=== PATIENT | female | born 1940 | race Caucasian/White ===

== ENCOUNTER 2019-04-04 03:09 | Emergency (ER) | payer MEDICARE, SELFPAY ==
--- NOTE | ~2019-04-04 | CT_ITS ---
EXAMINATION: CT abdomen pelvis w con DATE: 04/04/2019 05:55 INDICATION: Abdominal pain. Anemia, black stools. TECHNIQUE: Computed tomography (CT) of the abdomen and pelvis was performed with 100 cc Omnipaque 350 intravenous contrast. Automated exposure control and iterative reconstruction technique were employe d. Exam dose: 496.88 mGy-cm total exam DLP. COMPARISON: None. FINDINGS: Surgical clips are noted in the right breast. Heavily peripherally calcified left breast im plant. Old healed left rib fractures. Very prominent posterior pleural calcifications are noted on the right and along the anteromedial lef t chest wall.. Focal left upper lobe bronchiectasis and soft tissue bronchial thickening. There is discoid atelectasis or scarring and some focal tree-in-bud infiltrate in the left lower lobe . There is old pulmonary granulomatous disease. Normal heart size. No pericardial or pleural effusion. Occasional probable small hepatic cysts, too small to definitively characterize. Status post cholecystectomy. Calcified splenic granulomas. 5.8 mm pancreatic tail cyst. The adrenal glands appear normal. Approximately 8 and 7 mm left renal cyst. No urinary tract calculus or hydroureteronephrosis. The uri nary bladder, uterus and adnexal areas appear unremarkable. There is atherosclerotic calcification but no aneurysm of the abdominal aorta. No intraperitoneal or retroperitoneal or pelvic mass lesion or adenopathy or ascites is evident. Diverticulosis of the colon; no CT evidence of diverticulitis. No bowel obstruction or intraperitonea l free air is evident. There is a moderately prominent amount of fecal material within the colon. Radiopaque sutures along the anterior mid abdominal wall. Prominent dextroscoliosis of the lumbar spine and prominent degenerative disc disease. Prominent dege nerative change at the apophyseal joints. No suspicious osteolytic or osteoblastic lesions are noted. IMPRESSION: Bilateral prominent pleural calcifications Bronchiectasis and bronchial soft tissue thickening, left upper lobe Probable small hepatic cysts, 2 subcentimeter left renal cysts Diverticulosis of the colon Reviewed, dictated and finalized at [facility]. Reviewed, dictated and finalized at [facility]. [employer]
[2019-04-04 03:15] VITALS: BP 141/66; PULSE 113; RESP 16; TEMP 36.1; O2SAT 100
--- NOTE | 2019-04-04 05:05 | ED.ABDPAIN ---
HPI - Abdominal Pain General Chief Complaint: Abdominal Pain Stated Complaint: anemic, impacted, black stool Time Seen by Provider: 04/04/19 03:27 Source: RN notes reviewed History of Present Illness HPI narrative: Patient presents to the emergency department from home for black stools. Patient states symptoms been ongoing for the past 2 days. Patient states she is noted black stools as well as constipation. States she is had intermittent left abdominal pain. Denies any fevers or chills nausea or vomiting or any other symptoms. States she does have a history of anemia but denies any current iron use. Patient states that she has had a colonoscopy before performed at [facility] and is where her regular physicians are located. Denies any other symptoms at this time Related Data Home Medications Medication Instructions Recorded Confirmed amlodipine 04/04/19 aspirin [Adult Low Dose Aspirin] 04/04/19 metoprolol tartrate 04/04/19 rosuvastatin [Crestor] mg 04/04/19 Allergies Allergy/AdvReac Type Severity Reaction Status Date / Time No Known Allergies Allergy Unverified 01/24/18 15:33 Review of Systems Review of Systems: Narrative: Gen.: Denies fevers or chills ENT: Denies congestion Respiratory: Denies shortness of breath or cough CV: Denies chest pain or palpitations GI: See HPI denies burning, urgency, frequency or hematuria Musculoskeletal: Denies back pain or muscle pain Neuro: Denies numbness, tingling, weakness or focal weakness Skin: Denies rash Except as documented, all other systems reviewed and negative [facility] Past Medical History Medical History (Updated 04/04/19 @ 06:25 by J Luis Dave DO) Hyperlipidemia Hypertension Social History Social History (Updated 04/04/19 @ 05:07 by J Luis Dave DO) Smoking status: Never smoker Exam Narrative: Exam Narrative: APPEARANCE: No acute distress, nontoxic, resting in bed HEENT: Normocephalic, atraumatic, OMM RESPIRATORY: No respiratory distress, clear to auscultation bilaterally with no rhonchi wheezing or rales CARDIOVASCULAR: RRR s murmur ABDOMINAL: Soft, nondistended, tender palpation left lower quadrant, no tenderness left upper quadrant, right upper quadrant right lower quadrant, no rebound or guarding Rectal: Small amount of dark brown stool that is Hemoccult negative, MUSCULOSKELETAl: Moves all extremities. No clubbing, cyanosis or edema. NEURO: Awake and alert. Following commands, speech normal, no focal deficits SKIN:: Warm, dry. Normal Color PSYCHIATRIC: Normal affect/mood Course Course Emergency Course: Discussed with patient results of workup and diagnosis. Discussed need for follow-up with primary care, proper use of medication, and reasons to return to the emergency department. Patient understands and agrees to current treatment plan Vital Signs Vital signs: Vital Signs Temperature 97.0 F L 04/04/19 03:15 Pulse Rate 113 H 04/04/19 03:15 Respiratory Rate 16 04/04/19 03:15 Blood Pressure 141/66 H 04/04/19 03:15 Pulse Oximetry 100 04/04/19 03:15 Temperature 97.0 F L 04/04/19 03:15 Pulse Rate 113 H 04/04/19 03:15 Respiratory Rate 16 04/04/19 03:15 Blood Pressure 141/66 H 04/04/19 03:15 Pulse Oximetry 100 04/04/19 03:15 MDM - Abdominal Pain Lab Data Result diagrams: 04/04/19 05:09 04/04/19 05:34 Labs: Lab Results 04/04/19 04/04/19 04/04/19 Range/Units 04:06 05:09 05:09 WBC 7.3 (4.5-10.0) K/mm3 RBC 3.52 L (4.2-5.4) M/mm3 Hgb 9.2 L (12.0-15.0) g/dL Hct 30.0 L (37.0-47.0) % MCV 85.2 (80-100) fl MCH 26.1 (26-34) pg MCHC 30.7 L (32-36) g/dl RDW 14.6 H (11.5-14.5) % Plt Count 368 (150-375) k/mm3 MPV 8.7 (7.4-10.4) fl Immature Gran % (Auto) 0.5 (0-0.5) % Neut % (Auto) 80.6 H (45.5-73.1) % Lymph % (Auto) 8.2 L (18.3-44.2) % [place] % (Auto) 10.0 H (2.6-8.5) % Eos % (Auto) 0.4 (0-4.
[2019-04-04 05:26] LABS: Basophils Percent Auto 0.3 % (0.2-1.2); Eosinophils Percent Auto 0.4 % (0-4.4); Hemoglobin 9.2 g/dL (12.0-15.0); Immature Granulocyte Absolute 0.04 K/mm3 (0.00-0.031); Immature Granulocyte Percent A 0.5 % (0-0.5); Lymphocytes Percent Auto 8.2 % (18.3-44.2); Mean Corpuscular HGB Conc 30.7 g/dl (32-36); Mean Corpuscular Hemoglobin 26.1 pg (26-34); Mean Corpuscular Volume 85.2 fl (80-100); Mean Platelet Volume 8.7 fl (7.4-10.4); Monocytes Absolute Auto 0.7 K/mm3 (0.1-0.6); Neutrophils Absolute Auto 5.9 K/mm3 (1.3-6.7); Neutrophils Percent Auto 80.6 % (45.5-73.1); Platelet Count Result 368 k/mm3 (150-375); Red Blood Count 3.52 M/mm3 (4.2-5.4); Red Cell Distribution Width 14.6 % (11.5-14.5); White Blood Count 7.3 K/mm3 (4.5-10.0)
[2019-04-04 05:39] LABS: Alanine Aminotransferase 15 U/L (4-35); Albumin Level 3.8 g/dL (3.5-5.1); Alkaline Phosphatase 89 U/L (38-126); Aspartate Amino Transferase 23 U/L (14-36); Bilirubin,Total 0.3 mg/dL (0.2-1.3); Blood Urea Nitrogen 34 mg/dL (7-17); Calcium 9.3 mg/dL (8.4-10.2); Carbon Dioxide 29 mmol/L (22-30); Chloride 98 mmol/L (98-107); Estimated Glomerular Filt Rate 40; Glucose 104 mg/dL (65-105); Potassium 3.8 mmol/L (3.4-5.0); Prothrombin Time 13.3 Seconds (11.1-14.7); Sodium 137 mmol/L (137-145)
[2019-04-04 05:40] LABS: Partial Thromboplastin Time 34.8 SECONDS (22.3-36.8)
[2019-04-04 05:41] LABS: Blood Urea Nitrogen 44 mg/dL (8-26); Estimated Glomerular Filt Rate 37
[2019-04-04] MEDS: SODIUM CHLORIDE 0.9% IV 500 ML 999 ML IV CONT (07:03)
[2019-04-04 08:19] VITALS: BP 128/86; PULSE 93; RESP 15; O2SAT 96
--- NOTE | 2019-04-11 19:19 | PC.NURSE ---
LATE ENTRY This note is being entered to document information to the patient's record. The following information was omitted on [04/04/2019], NS stop time 0700.
== END 2019-04-04 08:21 | disposition home or self-care (01) ==
PROVIDERS: Emergency Provider Emergency Medicine; PCP Internal Medicine
DX: K59.00 Constipation, unspecified (principal); E78.5 Hyperlipidemia, unspecified; I10 Essential (primary) hypertension; R10.32 Left lower quadrant pain
CPT/HCPCS: 36415; 74177; 80053; 85025; 85610; 85730; 86850; 86900; 86901; 99283; J7040; Q9967

== ENCOUNTER 2020-10-28 12:59 | Emergency (ER) | payer MEDICARE, SELFPAY ==
[2020-10-28 13:09] VITALS: BP 169/79; PULSE 105; RESP 18; TEMP 36.8; O2SAT 97
--- NOTE | 2020-10-28 13:32 | ED.GENADULT ---
HPI - General Adult General Chief complaint: Extremity Problem,Nontraumatic Stated complaint: blood pressure Time Seen by Provider: 10/28/20 13:38 Source: patient and RN notes reviewed Mode of arrival: ambulatory Limitations: no limitations History of Present Illness HPI narrative: 80-year-old female presents with concern for blood pressure check. She also reports lower leg edema. Reports the edema has been a chronic problem. Reports she used to be on a water pill and is unable to take a water pill because it makes her dehydrated. Reports she was recently at the oral surgeon and was told she had blood pressure that was low, reports a blood pressure was 107/59. Reports she wanted to have her blood pressure checked again to make sure it was not low. She denies any current symptoms such as diaphoresis, lightheadedness, headache, syncope, near syncope. She reports lower leg edema, however denies any erythema, warmth, tenderness to the calves. Reports due to left upper extremity paralysis and right upper extremity weakness she is unable to use compression stockings. MD complaint: Edema Related Data Allergies Allergy/AdvReac Type Severity Reaction Status Date / Time No Known Allergies Allergy Verified 10/28/20 13:26 Review of Systems Review of Systems: CONSTITUTIONAL: Denies malaise, chills, sweats, or fever. CARDIOVASCULAR: Denies chest pain, palpitations. Reports bilateral lower leg edema. RESPIRATORY: Denies cough or dyspnea. SKIN: Denies calf redness, warmth, tenderness MUSCULOSKELETAL: Denies muscle skeletal pain or myalgia. NEUROLOGIC: Denies numbness, weakness, or headache. All systems reviewed & are unremarkable except as noted in HPI and below PMFSH Comments At time of signature, agree with nursing past medical, surgical, social and family history. There is no relevant family history pertinent to the presenting complaint Exam Narrative: GENERAL: Well-appearing, well-nourished, and in no acute distress. HEAD: Normocephalic EYES: PERRLA, conjunctivae clear ENT: Nares clear. Mucous membranes moist. NECK: Supple. CHEST: No respiratory distress. Clear to auscultation. No bony deformities, no asymmetry. Speaks in full sentences. HEART: Regular rate and rhythm. No murmur heard. Normal peripheral pulses. EXTREMITIES: Bilateral lower extremity edema, greater on the right, 2+ pitting. No erythema, warmth, tenderness noted SKIN: Warm, dry, no rash. No open skin, lacerations, abrasions noted NEURO: Alert and oriented x3. PSYCH: Normal mood and affect Course Course Emergency Course: Education given to patient regarding lower leg edema and treatment, blood pressure monitoring, diet. Patient is aware of diagnosis, understands and agrees to treatment plan. Anticipatory guidance given. Patient agrees to follow-up as directed and is aware of reasons to seek care at the emergency department. Portions of this record may have been created with voice recognition software Vital Signs Vital signs: Vital Signs Temperature 98.2 F 10/28/20 13:09 Pulse Rate 105 H 10/28/20 13:09 Respiratory Rate 18 10/28/20 13:09 Blood Pressure 169/79 H 10/28/20 13:09 Pulse Oximetry 97 10/28/20 13:09 Temperature 98.2 F 10/28/20 13:09 Pulse Rate 105 H 10/28/20 13:09 Respiratory Rate 18 10/28/20 13:09 Blood Pressure 169/79 H 10/28/20 13:09 Pulse Oximetry 97 10/28/20 13:09 Reviewed. Patient has been instructed to follow up with her primary care provider within the next week regarding her elevated blood pressure today. Medical Decision Making MDM Narrative Medical decision making narrative: Exam findings show no acute concerns or changes; patient is non-toxic appearing and is in no distress. Patient is appropriate for outpatient treatment and follow-up. Vital Signs Vital Signs: Vital Signs Temperature 98.2 F 10/28/20 13:09 Pulse Rate 105 H 10/28/20 13:09 Respiratory Rate 18 10/28/20 13:09 Blood Pressure 169
== END 2020-10-28 13:55 | disposition home or self-care (01) ==
PROVIDERS: Emergency Provider Nurse Practitioner; PCP Internal Medicine
DX: R60.0 Localized edema (principal)
CPT/HCPCS: 99212; G0463

== ENCOUNTER 2020-12-19 10:16 | Inpatient (IN) | payer MEDICARE, SELFPAY ==
[2020-12-19] VITALS (8 sets, daily range): BP systolic 91–131; BP diastolic 57–94; PULSE 76–112; RESP 17–25; TEMP 36.2–36.4; O2SAT 93–99; BMI 20.9
--- NOTE | ~2020-12-19 | CT_ITS ---
EXAMINATION: CT cervical spine wo con DATE: 12/19/2020 12:40 INDICATION: Fall. History of neck fracture in the past TECHNIQUE: Computed tomography (CT) of the cervical spine was performed without intravenous contrast. Automated exposure control and iterative reconstruction technique were employed. Exam dose: 605.33 mGy-cm total exam DLP. COMPARISON: None FINDINGS: There is normal alignment at C1 and C2, the odontoid process is intact. There is normal al ignment at the remainder of the cervical spine. No fracture or dislocation or prevertebral soft tiss ue swelling. There is multi-level degenerative disc disease of the cervical spine. IMPRESSION: Multi-level degenerative disc disease of the cervical spine; no fracture or dislocation Reviewed, dictated and finalized at [facility]. Reviewed, dictated and finalized at [facility]. IMPRESSION: Multi-level degenerative disc disease of the cervical spine; no fr acture or dislocation
--- NOTE | ~2020-12-19 | US_ITS ---
EXAMINATION: US venous doppler UE DATE: 12/20/2020 17:05 INDICATION: Left upper limb edema. TECHNIQUE: Grayscale ultrasound images without and with compression and Doppler ultrasound images of the left upper extremity veins were obtained. COMPARISON: None. FINDINGS: The visualized portions of the left internal jugular vein, subclavian vein, axillary vein, brachial v eins, basilic vein, and cephalic vein are patent. The radial vein and ulnar vein are not well visuali zed. IMPRESSION: 1. No deep venous thrombosis. Reviewed, dictated and finalized at [facility].
--- NOTE | ~2020-12-19 | CT_ITS ---
EXAMINATION: CT brain wo con DATE: 12/19/2020 12:40 INDICATION: Fall. Head trauma. TECHNIQUE: Computed tomography (CT) of the head was performed without intravenous contrast. The mA wa s adjusted according to patient size. Iterative reconstruction technique was employed. Exam dose: 60 5.33 mGy-cm total exam DLP. COMPARISON: None FINDINGS: There is streak artifact from tooth fillings and from motion. No intracranial mass lesion or hemorrhage, midline shift or mass effect is evident. No recent cerebro vascular accident is evident. CT is not sensitive for detection of hyperacute nonhemorrhagic infarct. Old high left parietal cerebrovascular infarct, old left occipital infarct and chronic left periventr icular lacunar infarct. There is nonspecific diminished attenuation of the cerebral white matter, likely due to chronic small vessel ischemic changes. Bilateral carotid siphon internal carotid artery calcifications. There is m oderate cerebral and cerebellar volume loss. No subdural or epidural hematoma is detected. The mastoid air cells and paranasal sinuses are well-developed and aerated. No fracture or bone destruction of the cranial vault. IMPRESSION: No skull fracture or acute intracranial finding Cerebral atherosclerosis and chronic small vessel ischemic changes of the cerebral white matter Old left parietal, occipital and periventricular infarcts Reviewed, dictated and finalized at [facility]. Reviewed, dictated and finalized at [facility]. IMPRESSION: No skull fracture or acute intracranial finding Cerebral atherosclerosis and chronic small vessel ischemic changes of the cereb ral white matter Old left parietal, occipital and periventricular infarcts
--- NOTE | ~2020-12-19 | XR_ITS ---
EXAMINATION: XR chest 1V EXAM DATE: 12/19/2020 12:43 INDICATION: Shortness of breath. TECHNIQUE: Portable AP frontal chest x-ray was obtained. There is no prior study for comparison. FINDINGS: There is patchy bibasilar airspace disease, multi segmental in the left lower lobe. Pneumon ia or edema, clinical correlation. There is cardiomegaly. Left breast implant with capsular calcifica tion, retraction. Right breast surgical clip markers. Right humeral neck hardware. Scattered calcifie d granulomata in the lungs. The bones are osteopenic. There are bony degenerative changes. There are left 9th, 7th and 6th rib fractures, probably old but clinical correlation. No pneumothorax. IMPRESSION: 1. Moderate amount of left greater than right basilar pneumonia or edema. 2. Cardiomegaly. 3. Other chronic findings. Reviewed, dictated and finalized at [facility].
--- NOTE | ~2020-12-19 | US_ITS ---
EXAMINATION: US venous doppler [facility] DATE: 12/20/2020 11:53 INDICATION: Bilateral lower limb swelling TECHNIQUE: Grayscale ultrasound images without and with compression and Doppler ultrasound images of the bilateral lower extremity veins were obtained. COMPARISON: None. FINDINGS: The visualized portions of right common femoral vein, profunda (deep) femoral vein, femoral vein, pop liteal vein, posterior tibial veins, peroneal veins, gastrocnemius vein and greater saphenous vein ou tflow are patent. 4.1 x 2.2 x 1.0 cm anechoic Wood's cyst at the right popliteal fossa. Prominent camilo bcutaneous edema at the right calf. The visualized portions of left common femoral vein, profunda femoral vein, femoral vein, popliteal v ein, posterior tibial veins, peroneal veins, gastrocnemius vein and greater saphenous vein outflow ar e patent. Mild subcutaneous edema at the left calf. IMPRESSION: 1. No deep venous thrombosis in either lower limb. 2. Small right Wood's cyst. Reviewed, dictated and finalized at location A.
--- NOTE | 2020-12-19 10:23 | ECG_ITS ---
Measurements Intervals [place] Rate: 120 P: 86 NM: 145 QRS: -39 QRSD: 97 T: 144 QT: 322 QTc: 456 Interpretive Statements SINUS TACHYCARDIA LEFT AXIS DEVIATION CANNOT RULE OUT SEPTAL INFARCT, AGE INDETERMINATE ST-T WAVE ABNORMALITY IN LAT/HIGH LAT LEADS- CONSIDER ISCHEMIA BASELINE WANDER- V6 ABNORMAL ECG Electronically Signed On 12-19-2020 14:35:48 CDT by Rigo Del Toro D.O.
[2020-12-19 10:49] LABS: Basophils Percent Auto 0.2 % (0.2-1.2); Hematocrit 41.6 % (37.0-47.0); Hemoglobin 12.8 g/dL (12.0-15.0); Immature Granulocyte Absolute 0.03 K/mm3 (0.00-0.031); Immature Granulocyte Percent A 0.4 % (0-0.5); Lymphocytes Absolute Auto 0.61 K/mm3 (0.9-3.2); Lymphocytes Percent Auto 7.2 % (18.3-44.2); Mean Corpuscular HGB Conc 30.8 g/dl (32-36); Mean Corpuscular Hemoglobin 29.9 pg (26-34); Mean Corpuscular Volume 97.2 fl (80-100); Mean Platelet Volume 9.4 fl (7.4-10.4); Monocytes Absolute Auto 0.6 K/mm3 (0.1-0.6); Monocytes Percent Auto 7.6 % (2.6-8.5); Neutrophils Absolute Auto 7.2 K/mm3 (1.3-6.7); Neutrophils Percent Auto 84.6 % (45.5-73.1); Platelet Count Result 210 k/mm3 (150-375); Red Blood Count 4.28 M/mm3 (4.2-5.4); Red Cell Distribution Width 16.2 % (11.5-14.5); White Blood Count 8.5 K/mm3 (4.5-10.0)
[2020-12-19 11:03] LABS: Alanine Aminotransferase 167 U/L (4-35); Alkaline Phosphatase 103 U/L (38-126); Anion Gap 10 mmol/L (8-16); Aspartate Amino Transferase 154 U/L (14-36); Blood Urea Nitrogen 60 mg/dL (7-17); Calcium 9.2 mg/dL (8.4-10.2); Carbon Dioxide 32 mmol/L (22-30); Chloride 102 mmol/L (98-107); Estimated CRCL calculation 24 ml/min; Estimated Glomerular Filt Rate 40; Glucose 100 mg/dL (65-110); Potassium 4.7 mmol/L (3.4-5.0); Sodium 144 mmol/L (137-145)
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
[2020-12-19 12:50] LABS: Creatine Kinase 967 U/L (30-135)
[2020-12-19 13:06] LABS: Troponin I 0.261 ng/mL (0.000-0.034)
[2020-12-19 13:34] LABS: Add Urine Microscopic? YES; Appearance Urine Cloudy (Clear); Bilirubin Urine Negative (Negative); Blood Urine Negative (Negative); Color Urine Yellow (Yellow); Glucose Urine UA Negative (Negative); Ketones Urine Negative (Negative); Leukocyte Esterase Ur Negative LEU/UL (Negative); Mucus Urine Rare /lpf; Nitrate Urine Negative (Negative); Protein Urine 3+ mg/dL (Negative); Squamous Epithelial Cell Urine Few /hpf (Few); Urobilinogen Urine Negative mg/dL (<2.0)
--- NOTE | 2020-12-19 13:42 | ECG_ITS ---
Measurements Intervals [place] Rate: 104 P: 66 RI: 157 QRS: -32 QRSD: 93 T: 138 QT: 347 QTc: 458 Interpretive Statements SINUS TACHYCARDIA ATRIAL PREMATURE COMPLEX LEFT AXIS DEVIATION CONSIDER ANTERIOR INFARCT, AGE INDETERMINATE BORDERLINE ST-T WAVE ABNORMALITY- INF/HIGH LAT LEADS BASELINE WANDER- V2 ABNORMAL ECG Electronically Signed On 12-19-2020 14:45:04 CDT by Rigo Del Toro D.O.
[2020-12-19] MEDS: SODIUM CHLORIDE 0.9% IV 500 ML 999 ML IV CONT (14:10)
--- NOTE | 2020-12-19 15:42 | PC.NURSE ---
Called an ordered a tray for pt.
[2020-12-19 17:57] LABS: EDCOVIDSCREEN Negative (Negative)
--- NOTE | 2020-12-19 20:20 | ADMGEN ---
This patient, Beatrice Bartholomew, was admitted to IMU Room 206-01 @ 1955 from ED. Patient/family oriented to hospital policies and general routines including ID bracelet, bed and alarms, visiting hours, pain management, procedures, bathroom and other care routines, personal items, smoking policy, room service/diet, and visiting hours. Information on how to activate the Rapid Response Team has been discussed. Patient/Family are encouraged to report perceived risks to care and to ask questions if they do not understand what they are told or what they should do.
--- NOTE | 2020-12-19 20:45 | PM.IMHP ---
H&P: HPI History of Present Illness Date/Time: 12/19/20 20:45 this is a 80 year old female patient who lives at home alone. 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 The patient has also had a mastectomy and has a consider amount of lymphadenopathy to the left arm. The patient is able to ambulate on her own and take care of herself however the patient fell down in the garage without her alert bracelet on. The patient laid on her garage floor yesterday from 6:00 a.m. to 7:00 p.m.. Her son activated the EMS however the patient refused to be transported to the hospital. The patient was taken to her chiropractor today in the chiropractor encouraged her to come to the emergency room for further assessment. Chest x-ray was read as moderate amount of left greater than right basilar pneumonia had edema. Cardiomegaly. Other chronic findings. Cervical spine was read as multiple level degeneration disc disease of the cervical spine no fracture or dislocation. Head CT was read as no skull fracture or acute intracranial findings. Cerebral atherosclerosis and chronic small vessel ischemic changes of the cerebral white matter. Old left parietal, occipital and periventricular infarct. Creatinine 1.3 with a BUN is 60 which is her baseline. AST 154 ALT is 167. Total creatinine kinase 967. Troponin 0.261. Rapid COVID-19 was negative. The patient is being admitted to inpatient services on the date of service 12/19/2020 Chief Complaint: weakness and fall Review of Systems Review of Systems: All systems reviewed & are unremarkable except as noted in HPI and below Constitutional: Constitutional: Reports as per HPI and Reports no additional constitutional complaints Eyes: Eyes: Reports as per HPI and Reports no additional eye complaints ENT: Reports system reviewed and no additional complaints, except as documented and Reports Normal hearing present Cardiovascular: Cardiovascular: Reports no additional cardiovascular complaints Respiratory: Respiratory: Reports no additional respiratory complaints and Reports no additional respiratory complaints Gastrointestinal: Gastrointestinal: Reports as per HPI and Reports no additional gastrointestinal complaints Musculoskeletal: Musculoskeletal: Reports no additional musculoskeletal complaints Integumentary/Breasts: Skin/Breast: Reports system reviewed and no additional complaints, except as docu and Reports as per HPI Neurologic: Reports system reviewed and no additional complaints, except as documented, Reports as per HPI and Reports Normal hearing present Psychiatric: Psychiatric: Reports no additional psychiatric complaints and Reports as per HPI Endocrine: Endocrine: Reports no additional endocrine complaints Hematologic/Lymphatic: Hematologic/Lymphatic: Reports no additional hematologic/lymphatic complaints Allergic/Immunologic: Allergic/Immunologic: Reports no additional allergic/immunologic complaints [facility] Past Medical History Medical History (Updated 12/19/20 @ 21:13 by Elissa Moss NP) Bilateral cataracts History of breast cancer Left mastectomy with breast implant with chemotherapy and radiation. Right lumpectomy with chemotherapy. History of CVA (cerebrovascular accident) As per head CTOld left parietal, occipital and periventricular infarcts History of poliomyelitis Hyperlipidemia Hypertension Surgical History Surgical History (Updated 12/19/20 @ 21:05 by Elissa Moss NP) H/O breast implant To the left secondary to mastectomy from breast cancer H/O cervical spine surgery History of left mastectomy History of lumpectomy of right breast History of surgical procedure on eye proper using laser History of tracheostomy Family History Family History (Updated 12/19/20 @ 21:06 by Elissa Moss NP) Father Testicular cancer Mother Breast cancer Social History Social History (Updated 12/19/20 @ 21:08 by Elissa Bansal
[2020-12-19 21:26] LABS: Creatine Kinase 626 U/L (30-135)
[2020-12-19 21:47] LABS: Troponin I 0.183 ng/mL (0.000-0.034)
[2020-12-20] VITALS (17 sets, daily range): BP systolic 106–128; BP diastolic 55–67; PULSE 97–117; RESP 14–20; TEMP 36.4–37.2; O2SAT 93–97; BMI 20.9
--- NOTE | 2020-12-20 | ECHO_ITS ---
Patient Info Name: Beatrice Bartholomew Age: 80 years : 1940 Gender: Female Ht: 64 in Wt: 122 lbs BSA: 1.58 m2 HR: 106 bpm BP: 106 / 60 mmHg Exam Date: 12/20/2020 9:46 AM Exam Location: [facility] Patient Status: Outpatient Admit Date: 12/19/2020 Staff Ordering Physician: Elissa Moss NP Dining Room Attendant Cafeteria: Venkat Tinajero RDCS, RT Attending Provider: Maddison Ledbetter PA-C Referring Physician: Ajay CAMPOS; Exam Type: CA echo dop color flow w con Study Info Indications I51.7 - Cardiomegaly Complete two-dimensional, color flow and Doppler transthoracic echocardiogram is performed with contrast to opacify the left ventricle and to improve the deliniation of the left ventricle endocardial borders. Summary 1. Technically difficult study, poor image quality despite using echo contrast. Borderline LV enlargement, borderline LVH. Severe global LV systolic dysfunction, ejection fraction visually estimated at about 15-20%. Diastolic dysfunction is present. Mild left atrial enlargement. Mitral valve is not well visualized, mild MR. Aortic valve not well visualized. Mild TR, moderate pulmonary hypertension, RVSP 53 mmHg. Dilated IVC without respiratory collapse. Sinus tachycardia. Left Ventricle Left ventricular systolic function is severely reduced, estimated at 15-20%. The left ventricular diastolic function is abnormal. Left Atria Left atrial chamber dimension is normal. Right Atria Right atrial chamber dimension is normal. Aortic Valve The aortic valve is not well visualized. Pulmonic Valve The pulmonic valve is not well visualized. Mitral Valve The mitral valve has not well visualized. There is mild mitral valve regurgitation. Tricuspid Valve The tricuspid valve leaflets are normal. There is mild tricuspid valve regurgitation. Moderate pulmonary hypertension, estimated pulmonary arterial systolic pressure is 53 mmHg. Pericardium/Pleural There is trivial pericardial effusion. Inferior Vena Cava Dilated inferior vena cava with no collapse upon inspiration consistent with elevated right atrial pressure, 15 mmHg. Aorta The aortic root size at the sinus of Valsalva is not well visualized. Mitral Valve Name Value Normal MV Doppler MV Decel [place] 433.10 cm/s2 MV PHT 0 s MV Area (PHT) 4.09 cm2 4.00-5.00 MV Diastolic Function MV E Peak Velocity 80.32 cm/s MV Decel Time 0 s MV Annular TDI MV E/e' (Septal) 12.18 <=8.00 MV E/e' (Lateral) 9.35 <=8.00 MV E/e' (Average) 10.76 Tricuspid Valve Name Value Normal TV Regurgitation Doppler TR Peak Velocity 308.99 cm/s
[2020-12-20] MEDS: SODIUM CHLORIDE 0.9% IV 1,000 ML 100 ML IV CONT ×2 (00:08→08:57)
[2020-12-20] MEDS: ROSUVASTATIN 10 MG TABLET PO (00:12)
[2020-12-20 05:49] LABS: Basophils Percent Auto 0.3 % (0.2-1.2); Eosinophils Percent Auto 0.4 % (0-4.4); Hematocrit 36.1 % (37.0-47.0); Immature Granulocyte Absolute 0.02 K/mm3 (0.00-0.031); Immature Granulocyte Percent A 0.3 % (0-0.5); Lymphocytes Absolute Auto 1.04 K/mm3 (0.9-3.2); Lymphocytes Percent Auto 13.7 % (18.3-44.2); Mean Corpuscular HGB Conc 30.5 g/dl (32-36); Mean Corpuscular Hemoglobin 29.3 pg (26-34); Mean Corpuscular Volume 96.3 fl (80-100); Mean Platelet Volume 9.4 fl (7.4-10.4); Monocytes Absolute Auto 0.9 K/mm3 (0.1-0.6); Monocytes Percent Auto 11.3 % (2.6-8.5); Neutrophils Absolute Auto 5.6 K/mm3 (1.3-6.7); Platelet Count Result 177 k/mm3 (150-375); Red Blood Count 3.75 M/mm3 (4.2-5.4); Red Cell Distribution Width 16.1 % (11.5-14.5); White Blood Count 7.6 K/mm3 (4.5-10.0)
[2020-12-20 06:00] LABS: Alanine Aminotransferase 126 U/L (4-35); Albumin Level 3.1 g/dL (3.5-5.1); Alkaline Phosphatase 82 U/L (38-126); Anion Gap 4 mmol/L (8-16); Aspartate Amino Transferase 91 U/L (14-36); Bilirubin,Total 0.6 mg/dL (0.2-1.3); Blood Urea Nitrogen 62 mg/dL (7-17); CRP 3.2 mg/dL (<1.0); Calcium 8.4 mg/dL (8.4-10.2); Carbon Dioxide 29 mmol/L (22-30); Chloride 104 mmol/L (98-107); Creatine Kinase 458 U/L (30-135); Estimated CRCL calculation 30 ml/min; Estimated Glomerular Filt Rate 43; Glucose 99 mg/dL (65-110); Lipase 134 U/L (23-300); Magnesium 2.2 mg/dL (1.6-2.3); Potassium 4.7 mmol/L (3.4-5.0); Sodium 137 mmol/L (137-145)
[2020-12-20] MEDS: POTASSIUM CHLORIDE 10 MEQ TABLET.ER PO (08:45)
[2020-12-20] MEDS: FUROSEMIDE 20 MG TABLET PO (08:45)
[2020-12-20] MEDS: ASPIRIN 81 MG ENTERIC TABLET PO (08:45)
--- NOTE | 2020-12-20 09:53 | PCOTNOTE ---
Attempted OT evaluation, patient is currently having a echo completed, will attempt at later time.
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
[2020-12-20] MEDS: PERFLUTREN LIPID MICROSPHERES 1.5 ML VIAL DILUTED TO 10 ML TOTAL VOLUME IV PUSH (10:30)
--- NOTE | 2020-12-20 13:33 | P.PNIM_ITS ---
Progress Note: A&P Assessment and Plan (1) Rhabdomyolysis: Qualifiers: Encounter type: initial encounter Rhabdomyolysis type: traumatic Qualified Code(s): T79.6XXA - Traumatic ischemia of muscle, initial encounter Code(s): M62.82 - Rhabdomyolysis Status: Acute Assessment and Plan: Secondary to fall in which she late on concrete floor for 12 hours. CK 967 at presentation * Continue IV fluids. CK is improved to 450 * Will recheck CK this afternoon. If it has come down further, will discontinue IV fluids given her systolic CHF to avoid volume overload * LFTs are elevated but improving * Hold statin * Monitor intake and output (2) Fall: Code(s): W19.XXXA - Unspecified fall, initial encounter Status: Acute Assessment and Plan: She had a fall at home. She had been feeling faint prior to her fall. She did hit her head and was on the ground for 12 hours. * Fall may have been precipitated by severe systolic CHF. Appreciate Cardiology recommendations * Implement fall precautions * Appreciate PT/OT evals * Head CT and cervical spine CT with no acute findings, no evidence of injuries (3) Systolic CHF: Code(s): I50.20 - Unspecified systolic (congestive) heart failure Status: Acute Assessment and Plan: She has a history of CHF and is followed by cardiology at [facility] * Echo performed today showed EF 15-20% with diastolic dysfunction * Appreciate cardiology consultation * Records being requested from [facility] * Started on metoprolol tartrate 12.5 b.i.d. * Discontinue IV fluids as possible to avoid volume overload. Repeating CK this afternoon and will discontinue based on results * Continue Lasix 20 mg daily. May need more aggressive diuresis following treatment of rhabdo (4) Chronic kidney disease: Code(s): N18.9 - Chronic kidney disease, unspecified Status: Acute Assessment and Plan: Creatinine appears to be consistent with baseline, maybe even slightly improved. * Continue with gentle IV fluids cautiously * Monitor renal function closely * Avoid nephrotoxic agents and renally dose medications (5) Elevated troponin: Code(s): R77.8 - Other specified abnormalities of plasma proteins Status: Acute Assessment and Plan: Troponin mildly elevated on presentation * Appreciate cardiology recommendations * Likely related to severe CHF * No signs or symptoms to suggest ischemia. ACS not suspected at this time. (6) Hypertension: Code(s): I10 - Essential (primary) hypertension Status: Chronic Assessment and Plan: Blood pressure reviewed and has been slightly soft, down to 91/57. Improved today with last BP 109/55 * Continue low-dose metoprolol tartrate as BP allows * Monitor blood pressure trends (7) Edema of left upper extremity: Code(s): R60.0 - Localized edema Status: Acute Assessment and Plan: 2+ edema of left upper extremity. Likely chronic as she has immobility of the left upper extremity due to brachial plexus injury. However, LUE has started weeping serous fluid, which is new * Likely due to excess volume related to severe CHF * Will obtain Doppler of left upper extremity * Supportive care. Elevate as is tolerated based on injury. Subjective Date/time seen: 12/20/20 13:33 Interval history: Date of service: 12/20/20 Beatrice Bartholomew is a 80 year old female with a history of hypertension, breast
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
[2020-12-20 17:13] LABS: Creatine Kinase 320 U/L (30-135)
[2020-12-20] MEDS: METOPROLOL TARTRATE 12.5 MG TABLET PO (20:24)
[2020-12-20] MEDS: SODIUM CHLORIDE 0.9% IV 1,000 ML 85 ML IV CONT (20:29)
[2020-12-21] VITALS (15 sets, daily range): BP systolic 100–111; BP diastolic 50–69; PULSE 83–106; RESP 12–20; TEMP 36.2–37.1; O2SAT 92–98
[2020-12-21] MEDS: MENTHOL 10% / METHYL SALICYLATE 15% 57 GM TUBE 1 APPLIC TOPICAL (00:03)
[2020-12-21 05:14] LABS: Hematocrit 34.1 % (37.0-47.0); Hemoglobin 10.6 g/dL (12.0-15.0); Mean Corpuscular HGB Conc 31.1 g/dl (32-36); Mean Corpuscular Hemoglobin 30.5 pg (26-34); Mean Platelet Volume 9.3 fl (7.4-10.4); Platelet Count Result 161 k/mm3 (150-375); Red Blood Count 3.48 M/mm3 (4.2-5.4); Red Cell Distribution Width 16.2 % (11.5-14.5); White Blood Count 7.5 K/mm3 (4.5-10.0)
[2020-12-21 05:25] LABS: Alanine Aminotransferase 107 U/L (4-35); Albumin Level 3.1 g/dL (3.5-5.1); Alkaline Phosphatase 74 U/L (38-126); Anion Gap 5 mmol/L (8-16); Aspartate Amino Transferase 66 U/L (14-36); Bilirubin,Total 0.4 mg/dL (0.2-1.3); Blood Urea Nitrogen 54 mg/dL (7-17); Calcium 7.9 mg/dL (8.4-10.2); Carbon Dioxide 30 mmol/L (22-30); Chloride 106 mmol/L (98-107); Creatine Kinase 251 U/L (30-135); Estimated CRCL calculation 30 ml/min; Estimated Glomerular Filt Rate 43; Glucose 105 mg/dL (65-110); Potassium 4.1 mmol/L (3.4-5.0); Sodium 141 mmol/L (137-145)
[2020-12-21] MEDS: METOPROLOL TARTRATE 12.5 MG TABLET PO ×2 (09:38→20:32)
[2020-12-21] MEDS: FUROSEMIDE 20 MG TABLET PO (09:40)
[2020-12-21] MEDS: ASPIRIN 81 MG ENTERIC TABLET PO (09:40)
[2020-12-21] MEDS: POTASSIUM CHLORIDE 10 MEQ TABLET.ER PO (09:40)
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
--- NOTE | 2020-12-21 12:12 | PHAR ---
HOME MED VERIFIED = GLATIRAMER ACETATE 40 MG/ML 1 ML FOR SUBCUTANEOUS USE IN PREFILLED SYRINGES X4. NO RX LABEL, IN [employer].
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
[2020-12-22] VITALS (14 sets, daily range): BP systolic 105–117; BP diastolic 61–79; PULSE 74–109; RESP 18–20; TEMP 36.2–37.2; O2SAT 93–99
[2020-12-22 05:26] LABS: Alanine Aminotransferase 103 U/L (4-35); Alkaline Phosphatase 77 U/L (38-126); Anion Gap 3 mmol/L (8-16); Aspartate Amino Transferase 59 U/L (14-36); Bilirubin,Total 0.6 mg/dL (0.2-1.3); Blood Urea Nitrogen 48 mg/dL (7-17); Calcium 8.2 mg/dL (8.4-10.2); Carbon Dioxide 33 mmol/L (22-30); Chloride 106 mmol/L (98-107); Estimated CRCL calculation 32 ml/min; Estimated Glomerular Filt Rate 48; Glucose 102 mg/dL (65-110); Potassium 4.4 mmol/L (3.4-5.0); Sodium 142 mmol/L (137-145)
[2020-12-22] MEDS: METOPROLOL TARTRATE 12.5 MG TABLET PO ×2 (09:26→21:21)
[2020-12-22] MEDS: POTASSIUM CHLORIDE 10 MEQ TABLET.ER PO (09:26)
[2020-12-22] MEDS: ASPIRIN 81 MG ENTERIC TABLET PO (09:27)
[2020-12-22] MEDS: FUROSEMIDE 20 MG TABLET PO (09:27)
[2020-12-22 12:28] LABS: Hepatitis B Surface Antigen Negative (Negative)
[2020-12-22 12:33] LABS: HAV RESULT Negative (Negative); Hepatitis B Core IgM Result Negative (Negative)
--- NOTE | 2020-12-22 12:33 | P.PNIM_ITS ---
Progress Note: A&P Assessment and Plan (1) Rhabdomyolysis: Qualifiers: Encounter type: initial encounter Rhabdomyolysis type: traumatic Qualified Code(s): T79.6XXA - Traumatic ischemia of muscle, initial encounter Code(s): M62.82 - Rhabdomyolysis Status: Acute Assessment and Plan: Secondary to fall in which she laid on concrete floor for 12 hours. CK 967 at presentation * CK improved to 250 * IV fluids discontinued as she has been adequately hydrated and CK is essent ially normalized * LFTs are elevated but improving * Statin on hold. Plan to resume on discharge if LFTs continue to improve as rhabdo was related to trauma and not secondary to statin use. * Monitor intake and output (2) Fall: Code(s): W19.XXXA - Unspecified fall, initial encounter Status: Acute Assessment and Plan: She had a fall at home. She had been feeling faint prior to her fall. She did hit her head and was on the ground for 12 hours. * Fall may have been precipitated by severe systolic CHF. Appreciate Cardiology recommendations * Fall precautions * Appreciate PT/OT evals. She is quite weak and I feel that she would benefit from SNF. I have recommended this to her but she feels adamantly about returning home. She is at high risk for recurrent falls * Head CT and cervical spine CT with no acute findings, no evidence of injuries (3) Systolic CHF: Code(s): I50.20 - Unspecified systolic (congestive) heart failure Status: Acute Assessment and Plan: She has a history of CHF and is followed by explosive ordnance disposal manager, Dr. Funez, at [facility] * Echo showed severely reduced EF 15-20% with diastolic dysfunction * Appreciate cardiology consultation * Records being requested from [facility] * Started on metoprolol tartrate 12.5 b.i.d. * Continue Lasix 20 mg PO daily. * Will initiate Entresto 12/13 b.i.d. will evaluate orthostatics following administration of this medication and will monitor how BP tolerates this new medication given history of symptomatic hypotension. scan coordinator consult for pricing of Entresto. * She is aware of need for outpatient follow-up with her primary explosive ordnance disposal manager. (4) Chronic kidney disease: Code(s): N18.9 - Chronic kidney disease, unspecified Status: Acute Assessment and Plan: Creatinine and GFR appears to be consistent with baseline * Monitor renal function closely, especially with addition of Entresto * Avoid nephrotoxic agents and renally dose medications (5) Elevated troponin: Code(s): R77.8 - Other specified abnormalities of plasma proteins Status: Acute Assessment and Plan: Troponin mildly elevated on presentation * Appreciate cardiology consultation * Likely related to severe CHF * No signs or symptoms to suggest ischemia. ACS not suspected at this time. (6) Hypertension: Code(s): I10 - Essential (primary) hypertension Status: Chronic Assessment and Plan: Blood pressure reviewed and was initially soft on presentation but has stabilized. Last BP 114/79. * Continue low-dose metoprolol tartrate as BP allows * Monitor blood pressure trends closely, especially with addition of Entresto * Check orthostatics (7) Lymphedema of arm: Code(s): I89.0 - Lymphedema, not elsewhere classified Status: Acute Assessment and Plan: 2+ edema of left upper extremity weeping serous fluid. Lymphedema is chronic and unchanged. Serous fluid is a new issue, likel
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
[2020-12-22 12:45] LABS: Hepatitis C Virus Antibody Negative (Negative)
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
--- NOTE | 2020-12-22 16:29 | PC.NURSE ---
This patient, Beatrice Bartholomew, was transferred to [facility] on 12/22/20 at 1518 via bed without issue. Personal belongings sent with patient. Report given to BAUTISTA Burton. Appropriate documentation sent with patient.
[2020-12-22] MEDS: SACUBITRIL/VALSARTAN 12-13 MG TABLET 1 TAB PO (21:21)
[2020-12-23 01:05] LABS: Myoglobin, Urine <27 mcg/L (<28)
[2020-12-23 03:20] VITALS: BP 99/54; PULSE 85; RESP 18; TEMP 36; O2SAT 91
[2020-12-23 07:15] LABS: Hematocrit 35.7 % (37.0-47.0); Hemoglobin 10.8 g/dL (12.0-15.0); Mean Corpuscular HGB Conc 30.3 g/dl (32-36); Mean Corpuscular Hemoglobin 29.7 pg (26-34); Mean Corpuscular Volume 98.1 fl (80-100); Mean Platelet Volume 9.8 fl (7.4-10.4); Platelet Count Result 161 k/mm3 (150-375); Red Blood Count 3.64 M/mm3 (4.2-5.4); Red Cell Distribution Width 16.3 % (11.5-14.5); White Blood Count 6.6 K/mm3 (4.5-10.0)
[2020-12-23 07:37] LABS: Alanine Aminotransferase 88 U/L (4-35); Albumin Level 2.9 g/dL (3.5-5.1); Alkaline Phosphatase 73 U/L (38-126); Anion Gap 0 mmol/L (8-16); Aspartate Amino Transferase 47 U/L (14-36); Bilirubin,Total 0.5 mg/dL (0.2-1.3); Blood Urea Nitrogen 46 mg/dL (7-17); Calcium 8.3 mg/dL (8.4-10.2); Carbon Dioxide 37 mmol/L (22-30); Chloride 106 mmol/L (98-107); Estimated CRCL calculation 32 ml/min; Estimated Glomerular Filt Rate 48; Glucose 100 mg/dL (65-110); Potassium 4.4 mmol/L (3.4-5.0); Sodium 143 mmol/L (137-145)
[2020-12-23 08:24] VITALS: BP 114/66; PULSE 101
[2020-12-23 08:25] VITALS: BP 119/75; PULSE 108
[2020-12-23 08:33] VITALS: PULSE 76
[2020-12-23] MEDS: METOPROLOL TARTRATE 12.5 MG TABLET PO (08:33)
[2020-12-23] MEDS: SACUBITRIL/VALSARTAN 12-13 MG TABLET 1 TAB PO (08:33)
[2020-12-23] MEDS: POTASSIUM CHLORIDE 10 MEQ TABLET.ER PO (08:33)
[2020-12-23] MEDS: FUROSEMIDE 20 MG TABLET PO (08:33)
[2020-12-23] MEDS: ASPIRIN 81 MG ENTERIC TABLET PO (08:33)
--- NOTE | 2020-12-23 11:14 | PCNFU ---
Nutrition Follow-Up Complete: Involuntary weight loss related to decreased intake as evidenced by patient statements, documented 10% weight loss since 03/2019. Goal: Patient to consume 50% of meals/supplements or greater and maintain weight. Patient is progressing towards goal. No new goal at this time. Pt current nutrition is a heart healthy diet as well as receiving Ensue Enlive BID providing an additional 350 calories and 20 grams of protein. Last recorded weight is 63.5 kg. Recommend re-weighing patient prior to discharge. Bowel Motility: + BM 12/22/2020 Labs Reviewed: Hgb 10.8, Hct 35.7, Alb 2.9, GFR 48, BUN 46, Cr 1.1 Meds Noted: Lasix, Lopressor, Kcl Tablet, Crestor, Aspirin, Sacubitril Additional Notes: Checked in with patient. Patient said she has a pretty good appetite consuming on average 80% of meals ordered. Would prefer strawberry and/or vanilla ensure. She has no significant skin issues as of now. She had no nutritional questions and/or concerns for me at the time. Follow up in 5 days.
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
--- NOTE | 2020-12-23 12:44 | PM.DS ---
DS: Admitting Diagnosis Discharge Date 12/23/20 Admitting Diagnosis CHF,fall DS: Discharge Diagnosis Discharge Diagnosis (1) Rhabdomyolysis: Qualifiers: Encounter type: initial encounter Rhabdomyolysis type: traumatic Qualified Code(s): T79.6XXA - Traumatic ischemia of muscle, initial encounter Code(s): M62.82 - Rhabdomyolysis Status: Acute Assessment and Plan: Secondary to fall in which she laid on concrete floor for 12 hours. CK 967 at presentation and down to 250 at d/c -liver enzymes still mildly elevated but will likely improve on their own. will repeat lft in one week and results will be sent to pcp (2) Fall: Code(s): W19.XXXA - Unspecified fall, initial encounter Status: Acute Assessment and Plan: She had a fall at home. She had been feeling faint prior to her fall. She did hit her head and was on the ground for 12 hours. Fall may have been precipitated by severe systolic CHF She saw pt and ot. She is quite weak and I feel that she would benefit from SNF. I have recommended this to her but she feels adamantly about returning home. She is at high risk for recurrent falls and understands the risk she is at. She is very close to family and they have agreed to help her out Head CT and cervical spine CT with no acute findings, no evidence of injuries (3) Systolic CHF: Code(s): I50.20 - Unspecified systolic (congestive) heart failure Status: Acute Assessment and Plan: She has a history of CHF and is followed by unloader, Dr. Funez, at [facility] Echo showed severely reduced EF 15-20% with diastolic dysfunction Started on metoprolol tartrate 12.5 b.i.d. and entresto. f/u bmp in one week and results to be sent to cardiology Continue Lasix 20 mg PO daily She is aware of need for outpatient follow-up with her primary unloader. (4) Chronic kidney disease: Code(s): N18.9 - Chronic kidney disease, unspecified Status: Acute Assessment and Plan: Creatinine and GFR appears to be consistent with baseline (5) Elevated troponin: Code(s): R77.8 - Other specified abnormalities of plasma proteins Status: Acute Assessment and Plan: Troponin mildly elevated on presentation Likely related to severe CHF No signs or symptoms to suggest ischemia. ACS not suspected at this time. (6) Hypertension: Code(s): I10 - Essential (primary) hypertension Status: Chronic Assessment and Plan: Blood pressure reviewed and was initially soft on presentation but has stabilized. Last BP 120/69 continue medications as stated above (7) Lymphedema of arm: Code(s): I89.0 - Lymphedema, not elsewhere classified Status: Acute Assessment and Plan: 2+ edema of left upper extremity weeping serous fluid. Lymphedema is chronic and unchanged. Serous fluid is a new issue, likely due to volume overload from severe CHF with immobility Venous doppler negative for DVT Supportive care. Elevate extremity. Apply compression wrap with ADELITA wrap She will benefit from lymphedema pump or compression sleeve. Spoke with PT services today. She will need outpatient referral for lymphedema evaluation. This will be more difficult as she has opted for home health on discharge, who do not provide lymphedema services. She will need to be referred to outpatient [facility] after completion of her home health. DS: Summary Hospital Course Hospital Course: [facility] 12/23/20 Patient is a 80-year-old female who presented emergency room for a fall. The patient was on the ground from 6:00 a.m. to 7:00 p.m. before she was found. Vitals in the ER were temperature 36.2? C, pulse 76, respiratory rate 18, blood pressure 130/93, pulse ox 96 on room air. Initial CBC within normal limits. BMP slight abnormality with her creatinine of 1.3 and a BUN 60. CK 967. Troponins eleva
[2020-12-23 16:00] VITALS: BP 120/69; PULSE 98; RESP 14; TEMP 37.1; O2SAT 99
== END 2020-12-23 15:40 | disposition home health service (06) | DRG 564 ==
LOC: ANHED 14:49 → ANHIMU 18:37 → ANH3MEDSUR 12-22 15:18
PROVIDERS: Emergency Medicine; Nurse Practitioner; Physician Assistant; Admitting Provider Internal Medicine; Emergency Provider Emergency Medicine; PCP Internal Medicine; Visit Provider Physician Assistant
DX: T79.6XXA Traumatic ischemia of muscle, initial encounter (principal); I50.21 Acute systolic (congestive) heart failure; I13.0 Hypertensive heart and chronic kidney disease with heart failure and stage 1 through stage 4 chronic kidney disease, or unspecified chronic kidney disease; G81.94 Hemiplegia, unspecified affecting left nondominant side; N17.9 Acute kidney failure, unspecified; I42.9 Cardiomyopathy, unspecified; E86.0 Dehydration; I25.10 Atherosclerotic heart disease of native coronary artery without angina pectoris; Z20.822 Contact with and (suspected) exposure to COVID-19; W19.XXXA Unspecified fall, initial encounter; N18.9 Chronic kidney disease, unspecified; R79.89 Other specified abnormal findings of blood chemistry; I89.0 Lymphedema, not elsewhere classified; E78.5 Hyperlipidemia, unspecified; Z85.3 Personal history of malignant neoplasm of breast; Z86.73 Personal history of transient ischemic attack (TIA), and cerebral infarction without residual deficits; Z86.12 Personal history of poliomyelitis; V89.2XXS Person injured in unspecified motor-vehicle accident, traffic, sequela
CPT/HCPCS: 36415; 51701; 70450; 71045; 72125; 80053; 80074; 81001; 82550; 82728; 83690; 83735; 83874; 84443; 84484; 85025; 85027; 86140; 87426; 93005; 93306; 93970; 93971; 96360; 96361; 96374; 97110; 97116; 97162; 97165; 97530; 97535; 99285; A9270; C8929; C9803; G0378; J7030; J7040; Q9957

== ENCOUNTER 2020-12-29 15:08 | Outpatient (NON) | payer MEDICARE, SELFPAY ==
[2020-12-30 09:33] LABS: Alanine Aminotransferase 49 U/L (4-35); Albumin Level 3.3 g/dL (3.5-5.1); Alkaline Phosphatase 83 U/L (38-126); Anion Gap 7 mmol/L (8-16); Aspartate Amino Transferase 39 U/L (14-36); Bilirubin,Total 0.7 mg/dL (0.2-1.3); Blood Urea Nitrogen 32 mg/dL (7-17); Calcium 8.7 mg/dL (8.4-10.2); Carbon Dioxide 33 mmol/L (22-30); Chloride 100 mmol/L (98-107); Estimated Glomerular Filt Rate > 60; Glucose 120 mg/dL (65-110); Potassium 4.2 mmol/L (3.4-5.0); Sodium 140 mmol/L (137-145)
== END 2020-12-29 15:09 | disposition home or self-care (01) ==
LOC: HOME HLTH 15:11
PROVIDERS: Physician Assistant; PCP Internal Medicine; Visit Provider Internal Medicine
DX: I42.9 Cardiomyopathy, unspecified (principal); R74.01 Elevation of levels of liver transaminase levels
CPT/HCPCS: 80048; 80076

== ENCOUNTER 2021-01-18 11:27 | Outpatient (NON) | payer MEDICARE, SELFPAY ==
[2021-01-18 12:10] LABS: Basophils Percent Auto 0.5 % (0.2-1.2); Eosinophils Absolute Auto 0.1 K/mm3 (0-0.3); Eosinophils Percent Auto 1.9 % (0-4.4); Hematocrit 37.3 % (37.0-47.0); Hemoglobin 11.7 g/dL (12.0-15.0); Immature Granulocyte Absolute 0.01 K/mm3 (0.00-0.031); Immature Granulocyte Percent A 0.2 % (0-0.5); Lymphocytes Absolute Auto 1.03 K/mm3 (0.9-3.2); Lymphocytes Percent Auto 17.6 % (18.3-44.2); Mean Corpuscular HGB Conc 31.4 g/dl (32-36); Mean Corpuscular Hemoglobin 29.5 pg (26-34); Mean Corpuscular Volume 94.2 fl (80-100); Mean Platelet Volume 9.3 fl (7.4-10.4); Monocytes Absolute Auto 0.6 K/mm3 (0.1-0.6); Monocytes Percent Auto 10.6 % (2.6-8.5); Neutrophils Absolute Auto 4.1 K/mm3 (1.3-6.7); Neutrophils Percent Auto 69.2 % (45.5-73.1); Platelet Count Result 258 k/mm3 (150-375); Red Blood Count 3.96 M/mm3 (4.2-5.4); Red Cell Distribution Width 16.2 % (11.5-14.5); White Blood Count 5.9 K/mm3 (4.5-10.0)
[2021-01-18 12:11] LABS: Albumin Level 3.2 g/dL (3.5-5.1); Chloride 99 mmol/L (98-107); Estimated Glomerular Filt Rate > 60; Potassium 4.3 mmol/L (3.4-5.0); Uric Acid 4.7 mg/dL (2.5-7.5)
[2021-01-18 16:31] LABS: Alanine Aminotransferase 35 U/L (4-35); Alkaline Phosphatase 92 U/L (38-126); Anion Gap 2 mmol/L (8-16); Aspartate Amino Transferase 57 U/L (14-36); Bilirubin,Total 0.3 mg/dL (0.2-1.3); Blood Urea Nitrogen 30 mg/dL (7-17); Calcium 8.6 mg/dL (8.4-10.2); Carbon Dioxide 39 mmol/L (22-30); Cholesterol 140 mg/dL (0-200); Creatine Kinase 23 U/L (30-135); Glucose 86 mg/dL (65-110); HDL Direct 42 mg/dL; Magnesium 1.6 mg/dL (1.6-2.3); Sodium 140 mmol/L (137-145); Triglycerides 101 mg/dL (<150)
[2021-01-18 16:40] LABS: NT Pro B Type Natriuretic Pept 15500 pg/mL (5-100)
[2021-01-18 16:42] LABS: LDL Cholesterol Direct 87 mg/dL
== END 2021-01-18 11:28 | disposition home or self-care (01) ==
PROVIDERS: PCP Internal Medicine
DX: E78.5 Hyperlipidemia, unspecified (principal); I50.9 Heart failure, unspecified; R55 Syncope and collapse; I10 Essential (primary) hypertension
CPT/HCPCS: 80053; 80061; 82550; 83735; 83880; 84443; 84550; 85025